=== PATIENT | female | born 1985 | race Caucasian/White ===

== ENCOUNTER 2022-07-27 06:07 | Day surgery (SDC) | payer MEDICAID ==
[2022-07-27] MEDS ORDERED: Acetaminophen 500 MG Tab PO ONE (06:30)
[2022-07-27] MEDS ORDERED: Lidocaine 1% with EPINEPHrine 1:100,000 50 ML MDV ONE (06:38)
[2022-07-27] MEDS ORDERED: fentaNYL 100 MCG/2 ML SDV ONE (07:08)
[2022-07-27] MEDS ORDERED: Propofol 200 MG/20 ML SDV ONE (07:08)
[2022-07-27] MEDS ORDERED: Midazolam 1 MG/ML 2 ML SDV ONE (07:08)
[2022-07-27] MEDS ORDERED: Lidocaine 0.5% 50 ML SDV ONE (07:10)
[2022-07-27] MEDS ORDERED: Dextrose 5%-Lactated Ringers 1,000 ML IV SCH (07:15)
[2022-07-27] MEDS ORDERED: ceFAZolin 2 GM in Sodium Chloride 0.9% 100 ML IV ONE (07:15)
[2022-07-27] MEDS ORDERED: ceFAZolin 2 GM in Sodium Chloride 0.9% 50 ML IV ONE (07:15)
[2022-07-27] MEDS ORDERED: Ketorolac 30 MG/ML SDV ONE (07:53)
[2022-07-27] MEDS ORDERED: fentaNYL 50 MCG/ML SDV IVPUSH ONE (08:16)
[2022-07-27] MEDS ORDERED: HYDROmorphone 2 MG Tab PO ONE (08:53)
[2022-07-27] MEDS ORDERED: Ketorolac 30 MG/ML SDV IM ONE (09:12)
== END 2022-07-27 10:31 | disposition home or self-care (01) ==
LOC: JP.SDS 06:07
PROVIDERS: ATTEND Surgery
DX: G56.02 Carpal tunnel syndrome, left upper limb (principal); D17.22 Benign lipomatous neoplasm of skin and subcutaneous tissue of left arm; K21.9 Gastro-esophageal reflux disease without esophagitis; G43.909 Migraine, unspecified, not intractable, without status migrainosus; Z79.899 Other long term (current) drug therapy; Z88.0 Allergy status to penicillin; Z91.040 Latex allergy status
CPT/HCPCS: 88304; A9270-GY; J0690; J1885; J2250; J2704; J3010; J3490; J7121